=== PATIENT | female | born 1970 | race Caucasian/White ===

== ENCOUNTER 2016-06-05 08:00 | Inpatient (IN) | payer OTHER ==
--- NOTE | 2016-06-11 14:31 | HP ---
DATE OF ADMISSION: CHIEF COMPLAINT: Right knee pain. HISTORY OF PRESENT ILLNESS: The patient is a 45-year-old female who presents with progressive right knee pain secondary to osteoarthrosis despite extensive conservative treatment. She notes her pain is limiting her normal function and activities. She has had multiple previous injections in addition to previous arthroscopies. PAST MEDICAL HISTORY: Significant for arthritis and depression. PAST SURGICAL HISTORY: Significant for cholecystectomy, foot surgery, hysterectomy, bilateral knee arthroscopies. CURRENT MEDICATIONS: 1. Humira. 2. Ibuprofen. 3. Lexapro. 4. Neurontin. 5. Suboxone. She notes allergies to ERYTHROMYCIN and GATIFLOXACIN. FAMILY HISTORY: Significant for cancer. SOCIAL HISTORY: Negative for current tobacco or alcohol use. A 16-point review of systems otherwise reviewed and is noncontributory. On examination, the patient is approximately 5 foot 6, 190 pounds of endomorphic habitus. HEENT exam is nonfocal. Neck is supple. She has painless passive motion of the right hip. Straight leg raise is negative. Active motion of the right knee -6 to 115 degrees of flexion. She has a moderate effusion. She is tender about the medial joint line and lateral patella facet. Collaterals are stable, Willam is negative, Harish's is equivocal. She has genu varum alignment. Her distal neurovascular exam appears be intact in the right lower extremity. Weight-bearing notch, lateral, and merchant views of the right knee obtained in the office show severe medial and patellofemoral compartment narrowing. IMPRESSION: 1. Right knee severe medial and patellofemoral compartment osteoarthrosis. 2. Increased body mass index. RECOMMENDATIONS: I talked to the patient regarding her treatment options. At this point, she opts to proceed with surgery. We will plan to proceed with right total knee arthroplasty. Risks and benefits were discussed at length in layman's terms. We will institute DVT prophylaxis postoperatively. The patient underwent preoperative medical evaluation by Dr. Berry.
[2016-06-12] MEDS ORDERED: ACETAMINOPHEN TAB 500 MG TAB PO ONE (05:00)
[2016-06-12] MEDS ORDERED: MELOXICAM 7.5 MG TAB PO ONE (05:00)
[2016-06-12] MEDS ORDERED: TRANEXAMIC ACID 1,000 MG in SODIUM CHLORIDE 0.9% 100 ML IVPB ONE ×4 (05:00)
[2016-06-12] MEDS ORDERED: MIDAZOLAM 2 MG/2 ML VIAL IV PRN (05:56)
[2016-06-12] MEDS ORDERED: ONDANSETRON 4 MG/2 ML VIAL IVP ONE (05:56)
[2016-06-12] MEDS ORDERED: HYDROmorphone 1 MG/ML 1 ML SYRINGE IVP PRN ×3 (05:56→14:09)
[2016-06-12] MEDS ORDERED: DEXAMETHASONE SOD PHOSPHATE 10 MG/ML 1 ML VIAL IV ONE (05:56)
[2016-06-12] MEDS: LACTATED RINGERS 1,000 ML IV SCH (09:51)
[2016-06-12] MEDS ORDERED: LIDOCAINE 1% 20 ML VIAL (10MG/ML) FOR IV START INTRADERMA ONE (09:51)
[2016-06-12] MEDS ORDERED: MIDAZOLAM 2 MG/2 ML VIAL IV ONE (10:10)
[2016-06-12] MEDS ORDERED: fentaNYL (PF) 50 MCG/ML 2 ML AMP IV ONE (10:28)
[2016-06-12] MEDS ORDERED: ROPIVACAINE 1,100 MG, SODIUM CHLORIDE 0.9% 330 ML MISCELLANE PRN ×2 (10:29)
--- NOTE | 2016-06-12 10:32 | P.ONQ ---
Anesthesiology Proc Note - PNB - Peripheral Nerve Block Performed Right Adductor Canal Infusion Time Out Performed: Yes Indication: Acute Post-Operative Pain, Analgesia Specifically requested for management of pain by : Harris Lin Sedation Type: Sedate with meaningful contact maintained Preparation: Sterile Prep Position: Supine Catheter Depth at Skin (cm): 8 Catheter: Indwelling Needle Types: On-Q Needle Size: 100mm (4") Needle Gauge: 20 Technique: Ultrasound Injectate: 0.5% Ropivacaine (see comment for volume) (20 cc) Blood Aspirated: No Pain Paresthesia on Injection Noted: No Resistance on Injection: Normal Events: Uneventful and Well Tolerated
[2016-06-12] MEDS ORDERED: ePHEDrine 50 MG/ML 1 ML AMP ONE (12:24)
[2016-06-12] MEDS ORDERED: MIDAZOLAM 2 MG/2 ML VIAL ONE (12:24)
[2016-06-12] MEDS ORDERED: TRANEXAMIC ACID 1,000 MG/10 ML VIAL ONE (12:24)
[2016-06-12] MEDS ORDERED: fentaNYL (PF) 50 MCG/ML 2 ML AMP ONE (12:24)
[2016-06-12] MEDS ORDERED: SODIUM CHLORIDE 0.9% IRRIG 3,000 ML BAG IRRIGATION ONE (12:24)
[2016-06-12] MEDS ORDERED: LACTATED RINGERS 1,000 ML BAG IV ONE (12:24)
[2016-06-12] MEDS ORDERED: PROPOFOL 10 MG/ML 20 ML VIAL IV ONE (12:24)
[2016-06-12] MEDS ORDERED: SODIUM CHLORIDE 0.9% 100 ML BAG ONE ×2 (12:24)
[2016-06-12] MEDS ORDERED: ceFAZolin 1,000 MG VIAL ONE ×2 (12:24)
[2016-06-12] MEDS: ceFAZolin 2 GM in SODIUM CHLORIDE 0.9% 100 ML IVPB ONE ×2 (12:28→18:25)
[2016-06-12] MEDS ORDERED: ROPIVACAINE 246.25 MG, EPINEPHrine 0.5 MG, KETOROLAC 30 MG, cloNIDine HCL/PF 80 MCG, WA... MISCELLANE ONE ×5 (12:39)
[2016-06-12] MEDS: ceFAZolin 3,000 MG in SODIUM CHLORIDE 0.9% IRRIGATIO 3,000 ML IRRIGATION ONE ×2 (13:02→18:27)
[2016-06-12] MEDS: LACTATED RINGERS 1,000 ML IV ONE ×2 (13:14→18:27)
[2016-06-12] MEDS ORDERED: MAGNESIUM HYDROXIDE 2,400 MG/10 ML CUP PO PRN (14:09)
[2016-06-12] MEDS ORDERED: hydrOXYzine PAMOATE 25 MG CAP PO PRN (14:09)
[2016-06-12] MEDS ORDERED: NALOXONE 0.4 MG/ML 1 ML VIAL IV PRN (14:09)
[2016-06-12] MEDS ORDERED: ONDANSETRON 4 MG/2 ML VIAL IVP PRN (14:09)
--- NOTE | 2016-06-12 14:43 | P.OP ---
Date of Procedure: 06/12/16 Preoperative Diagnosis: Right knee severe tricompartmental osteoarthrosis Postoperative Diagnosis: Same Procedure(s) Performed: Right total knee arthroplasty/cemented/cruciate retaining Implants: [employer] size 6 narrow cemented femoral component, size 4 cemented tibial component, 29 mm cemented patellar component, 11 mm articular surface. This is a cruciate retaining implant. Anesthesia: spinal Surgeon: Harris Lin Conference Specialist #1: Aly Ladd Estimated Blood Loss (ml): 60 Pathology: other (Bone fragments) Condition: stable Disposition: PACU Indications for Procedure: The patient is a 45-year-old female who presents with progressive right knee pain secondary to osteoarthrosis despite extensive conservative measures. A discussion of the risks and benefits of operative intervention versus continued conservative measures was made with the patient. She opted to proceed with surgery. Operative risks to include infection, neurovascular injury, development of blood clots, possible component loosening, possible component failure need for subsequent procedures was discussed. Informed consent was obtained. Operative Findings: As below Description of Procedure: The patient was brought to the operating room, and after induction of spinal anesthesia the right lower extremity was prepped and draped in normal fashion. The tourniquet was inflated to 270 mmHg. A longitudinal incision extending 3 finger breaths above this. Pole of patella extending to the medial aspect of the tibial tubercle was then made. Skin and subcutaneous tissues were divided sharply. Electrocautery was used for hemostasis. A medial parapatellar arthrotomy is performed. The medial soft tissues to include the superficial and deep portions of the medial collateral ligament were elevated subperiosteally. The medial hamstrings were also elevated. The patella was everted. A portion of the retropatellar fat pad was excised sharply. The knee was flexed. The anterior cruciate ligament was sacrificed. Blunt retractors were placed. A starting hole was made 1 cm anterior to the posterior cruciate ligament origin. An intramedullary femoral guide was then gently inserted planning a 5 valgus distal cut with 9.5 mm distal resection. The cutting block was pinned in place. The distal cut was then made. The posterior referencing sizing guide was utilized. A felt size 6 was most appropriate. 3 external rotation was built into the alignment system and verified off the trans -epicondylar axis and the posterior condyles. The cutting block was pinned in place. The anterior, posterior, and chamfer cuts were then made. The bone fragments were removed. The size 6 narrow femoral component was placed and was fully seated. There was good anterior to posterior and medial to lateral fit. The distal peg holes were drilled. The trial component was then removed. Attention was then paid towards preparing the proximal tibia. An extra medullary guide was utilized in line with the tibial shaft and second metatarsal distally. A 3 posterior slope cutting block was utilized. I planned on 2 mm resection from the medial compartment. The cutting block was pinned in place. The posterior cruciate ligament was protected with a retractor. The proximal tibial cut was made in the bone removed in one fragment. The tibia sized most appropriately at size 4. The trial femoral and tibial components were placed along with an 11 mm articular surface. I was able to obtain full flexion and extension with good stability with varus and valgus stress. After several flexion and extension cycles the tibial rotation was marked with electrocautery in line with the medial one third of the tibial tubercle. Attention was then paid towards preparing the patella. A patella reamer was utilized taking this down to 14 mm of bone stock. A good flush cut was made. The patella sized most appropriately 29 mm. The peg holes were drilled. The trial component was placed. The knee was taken through range of motion. I had good patellofemoral tracking with no hands technique. The trial components were then removed. Remnants of the medial lateral menisci were previously excised the capsule junction with electrocautery. The tibia was prepared in the appropriate rotation with appropriate drill and keel punch. The flexion and extension gaps were checked and felt to be symmetric. The posterior soft tissues were injected with ropivacaine. The bony surfaces were prepared with pulsatile lavage and dried. The tibial component was then cemented in placed and was fully seated. Excess cement was removed. The femoral component cemented in placed and was fully seated. Excess cement was removed. A trial 11 mm articular surface was placed and the knee was put in full extension. The patella component was cemented in placed and was fully seated. Excess cement was removed. After the cement had sufficiently hardened , knee was again taken through range of motion. Again I was able to obtain full flexion and extension with good stability with varus and valgus stress. The trial articular surface was removed and the final one inserted. This was fully seated. Care was taken to avoid any soft tissue interposition. Pulsatile lavage was skin utilized. The medial parapatellar arthrotomy was closed with #2 Ethibond suture. A deep drain was placed exiting laterally. The tourniquet was deflated prior to final arthrotomy closure with approximately 1 hour total tourniquet time. Final hemostasis was obtained with electrocautery. The subcutaneous tissues reapproximated interrupted 2-0 Vicryl sutures. The skin was reapproximated with varus a particular strata fix suture. Skin tape and adhesive was applied. A sterile dressing was applied. The patient was then awoken from sedation and transferred to the recovery room in good condition. Blood loss was estimated at 60 mL. No complications were incurred. Sponge and needle counts were correct at the end the case.
--- NOTE | 2016-06-12 14:54 | XR ---
EXAMINATION TYPE: XR knee limited RT DATE OF EXAM: 06/12/2016 2:47 PM CLINICAL HISTORY: Right knee pain and arthritis status post total knee replacement. TECHNIQUE: Portable AP and crosstable lateral views of the right knee are obtained immediately posto peratively. COMPARISON: Right knee MRI April 15, 2015. FINDINGS: Metallic hardware from total right knee arthroplasty is seen and appears satisfactory in a lignment and position. There is evidence of recent surgery with diffuse subcutaneous gas , soft tiss ue swelling, and percutaneous surgical drain noted. IMPRESSION: METALLIC HARDWARE FROM TOTAL RIGHT KNEE ARTHROPLASTY IS SATISFACTORY IN ALIGNMENT.
[2016-06-12] MEDS ORDERED: ROPIVACAINE 5 MG/ML 30 ML VIAL MISCELLANE ONE (14:59)
[2016-06-12] MEDS ORDERED: LACTATED RINGERS 1,000 ML IV ONE (16:08)
[2016-06-12] MEDS: ceFAZolin 2 GM in SODIUM CHLORIDE 0.9% 100 ML IVPB SCH ×2 (18:28→22:58)
[2016-06-12] MEDS ORDERED: SENNOSIDES-DOCUSATE SODIUM 1 EACH TAB PO SCH (21:00)
[2016-06-12] MEDS: traMADol 50 MG TAB PO SCH ×2 (21:07→21:13)
[2016-06-12 21:55] VITALS: BMI 32.9
[2016-06-13 01:18] VITALS: RESP 16
[2016-06-13] MEDS: LACTATED RINGERS 1,000 ML IV SCH (03:41)
[2016-06-13] MEDS: oxyCODONE-APAP 10-325MG 1 EACH TAB PO PRN ×2 (05:37→10:55)
[2016-06-13 07:32] LABS: Basophils % (A) 0 %; CH 28.5; CHCM 33.1; Eosinophils % (A) 0 %; HCT 34.1 % (34.0-46.0); HDW 2.61; HGB 11.3 gm/dL (11.4-16.0); Luc % (Auto) 1; Lymphocytes # (A) 1.6 k/uL (1.0-4.8); Lymphocytes % (A) 11 %; MCH 28.6 pg (25.0-35.0); MCHC 33.1 g/dL (31.0-37.0); MCV 86.7 fL (80.0-100.0); Mean Platelet Volume 7.2; Monocytes # (A) 0.7 k/uL (0-1.0); Monocytes % (A) 5 %; Neutrophils # (A) 11.8 k/uL (1.3-7.7); Neutrophils % (A) 84 %; RBC 3.93 m/uL (3.80-5.40); RDW 12.2 % (11.5-15.5); WBC 14.2 k/uL (3.8-10.6); WBC (Perox) 14.81
[2016-06-13] MEDS: traMADol 50 MG TAB PO SCH ×2 (07:36→13:49)
[2016-06-13] MEDS: ceFAZolin 2 GM in SODIUM CHLORIDE 0.9% 100 ML IVPB SCH (07:36)
[2016-06-13] MEDS ORDERED: ceFAZolin 2 GM in SODIUM CHLORIDE 0.9% 100 ML IVPB ONE (08:00)
[2016-06-13] MEDS ORDERED: MELOXICAM 7.5 MG TAB PO SCH (09:00)
[2016-06-13] MEDS ORDERED: FAMOTIDINE 20 MG TAB PO SCH (09:00)
[2016-06-13] MEDS ORDERED: RIVAROXABAN 10 MG TAB PO SCH (09:00)
--- NOTE | 2016-06-13 10:24 | P.PN ---
Progress Note - Text Postoperative day 1 status post right total knee arthroplasty, and right adductor canal test and placed for postoperative analgesia, patient currently on ropivacaine 0.2% at 8 mL per hour, vital signs stable, patient reported that her pain score is 2-3/10, he is satisfied with the the pain control, Assessment and plan= adequate pain control will continue the same management
--- NOTE | 2016-06-13 11:29 | P.PN ---
Subjective Principal diagnosis: Status post right total knee arthroplasty Patient is seen today resting in her hospital bed, she appears to be no acute distress. Her pain is controlled at this point. She's ambulated well with therapy. She denies any shortness of breath, chest pain, fever chills. Objective - Vital Signs Vital signs: Vital Signs Temp 97.6 F 06/13/16 07:00 Pulse 94 06/13/16 07:00 Resp 16 06/13/16 07:00 BP 117/67 06/13/16 07:00 Pulse Ox 96 06/13/16 07:00 Intake & Output 06/12/16 06/13/16 06/13/16 18:59 06:59 18:59 Intake Total 5100 1500 Output Total 222 015 4026 Balance 4150 770 -1150 Weight 92.533 kg Intake: IV 5100 Intake, IV Titration 400 Amount Lactated Ringers 1,000 ml 400 As IV .[facility] Rx#: [id number] Oral 1100 Output: Drainage 180 Right Knee 180 Urine 892 904 7335 Uretheral (Santos) 550 900 Estimated Blood Loss 60 Other: Voiding Method Indwelling Catheter Indwelling Catheter # Voids 1 - Exam Right lower extremity: Her incision is clean, dry, and intact. Minimal ecchymosis present on the medial and lateral aspects of the incision. Calf is soft, no tenderness with palpation. Plantar flexion, dorsiflexion, EHL, FHL are intact. Sensory exam to light touch throughout the right lower extremity is intact. Cap refills less than 3 seconds - Labs CBC & Chem 7: 06/13/16 06:35 Labs: Abnormal Lab Results - Last 24 Hours (Table) 06/13/16 Range/Units 06:35 WBC 14.2 H (3.8-10.6) k/uL Hgb 11.3 L (11.4-16.0) gm/dL Neutrophils # 11.8 H (1.3-7.7) k/uL Assessment and Plan Plan: Assessment: 1. Postop day #1 status post right total knee arthroplasty Plan: 1. Pain control, she'll resume her oral medications after discharge 2. GI and DVT prophylaxis, discharged home on Xarelto 10 mg daily 3. Home therapy and nursing discharge 4. Wound care was discussed with patient today 5. Medical recommendations 6. Discharge planning: Patient will be discharged home today Time with Patient: Less than 30
--- NOTE | 2016-06-13 11:30 | P.DS ---
Providers Date of admission: 06/12/16 08:41 Expected date of discharge: 06/13/16 Attending physician: Harris Lin Consults: 06/12/16 14:09 Consult Physician Routine Consulting Provider: Bryan Berry Reason/Comments: medical management Do you want consulting provider notified?: Yes Primary care physician: Bryan Berry Hospital Course: Date of admission: 06/12/2016 Date of discharge: 06/13/2016 Admission diagnosis: Status post right total knee arthroplasty Discharge diagnosis: Same Attending physician: Dr. Lin Surgical procedures: Right total knee arthroplasty Brief history: Patient is a 45-year-old female with a history of progressive primary right knee osteoarthritis. At this point patient has failed conservative treatment measures and has opted to proceed with a elective right total knee arthroplasty. Hospital course: Details of patient's surgery can be found in operative report. Patient tolerated the procedure well and was subsequently transported to orthopedic floor. Patient's orthopeidc and medical care was provided daily. Patient had daily laboratory tests performed for evaluation of overall blood counts. Patient had daily physical therapy to include strengthening range of motion as well as education with walker ambulation. Patient had daily CPM usage as part of their physical therapy program. Patient was treated with Xarelto for their postoperative DVT prophylaxis during their inpatient stay. Patient was noted to have a relatively uneventful postoperative course. Patient reported satisfactory pain control with oral pain medications by postoperative day 0. Patient showed satisfactory progress with physical therapy. Patient moved steadily through the program and had no difficulty meeting the goals by postoperative day 1. Given patient's otherwise satisfactory course and having met physical therapy goals, plan is to discharge patient home on postoperative day 1. Discharge condition/disposition: Patient will be discharged home in stable condition. Discharge medications: Instructions are given on resumption of patient's normal daily medications per primary care recommendation, in addition patient will be prescribed Xarelto 10 mg, Colace 100 mg. Discharge instructions: 1. Wound care and infection precautions, keep incision dry and covered while showering, no lotions, creams, moisturizers. No soaking, tubs, pools, hottubs. Do not scrub over the incision. 2. Weight-bear as tolerated with walker / cane until follow-up. 3. Ice and elevate when necessary. Do not exceed 20 minutes per hour with ice pack. 4. Utilize compression sleeve until seen at first follow up appointment. 5. Visiting nursing care. 6. Home physical therapy including home CPM. 7. Pain meds and anticoagulants per prescription. 8. Pain medication has potential to cause constipation. Increase oral fluid and fiber intake. Contact primary care provider if you have not had a bowel movement within 48 hours after discharge 9. No anti-inflammatory medication until discussed at first post operative visit, this including Motrin, Aleve, Mobic, Diclofenac. 10. Follow up in office at 2 weeks postop with Raul Ladd PA-C 11. Follow up with your primary care doctor 7-10 days after discharge. 12. Contact [facility] with any questions, . Procedures: Right total knee arthroplasty Patient Condition at Discharge: Good Plan - Discharge Summary New Discharge Prescriptions: Docusate [Colace] 100 mg PO DAILY #20 capsule Rivaroxaban [Xarelto] 10 mg PO DAILY #12 tab Discharge Medication List Acetaminophen Tab [Tylenol Tab] 500 mg PO Q6H PRN 09/06/15 [History] Buprenorphine HCl/Naloxone HCl [Suboxone 4 mg-1 mg Sl Film] 1 film SL DAILY 10/16 [History] Escitalopram [Lexapro] 20 mg PO HS 09/06/15 [History] Gabapentin [Neurontin] 600 mg PO TID 09/06/15 [History] Ascorbic Acid [Vitamin C] 500 mg PO DAILY 06/01/16 [History] [place]-3 Fatty Acids/Fish Oil [Fish Oil 1,000 mg Softgel] 1 cap PO DAILY [History] Rivaroxaban [Xarelto] 10 mg PO DAILY #12 tab 06/12/16 [Rx] oxyCODONE-APAP 10-325MG [Percocet 10-325 mg] 1 tab PO Q6HR PRN 06/12/16 [History ] Docusate [Colace] 100 mg PO DAILY #20 capsule 06/13/16 [Rx] Follow up Appointment(s)/Referral(s): Aly Ladd PAC [PHYSICIAN SUPERVISOR ANODIZING] - 2 Weeks Activity/Diet/Wound Care/Special Instructions: Home Care - [facility] - [phone] Walker - has at home [facility] - [phone] - call for delivery of CPM when you get home. Orthopedic Discharge Instructions: 1. Wound care and infection precautions, keep incision dry and covered while showering, no lotions, creams, moisturizers. No soaking, pools, hot tubs. Do not scrub over incision. 2. Weight-bear as tolerated with walker / cane until follow-up. 3. Ice and elevate when necessary. Do not exceed 20 minutes per hour with ice pack. 4. Utilize compression sleeve until seen at first follow up appointment. 5. Visiting nursing care. 6. Home physical therapy including home CPM. 7. Pain meds and anticoagulants per prescription. 8. Pain medication has potential to cause constipation. Increase oral fluid and fiber intake. Contact primary care provider if you have not had a bowel movement within 48 hours after discharge. 9. No anti-inflammatory medication until discussed at first post operative visit, this including Motrin, Aleve, Mobic, Diclofenac. 10. Follow up in office at 2 weeks postop with Raul Ladd PA-C 11. Follow up with your primary care doctor 7-10 days after discharge. 12. Contact [facility] with any questions, . Discharge Disposition: HOME WITH HOME HEALTH SERVICES
[2016-06-13 14:41] VITALS: BP 122/79; PULSE 95; TEMP 98.2
--- NOTE | 2016-06-13 17:01 | CONS ---
DATE OF CONSULTATION: 06/13/2016 REASON FOR CONSULTATION: Medical management requested Dr. Lin. CONSULTATION: This is a pleasant 45-year-old patient of Dr. Berry who has undergone right total knee arthroplasty. Post procedure pain is controlled. No nausea, vomiting. No chest pain. Patient's chronic stable medical conditions include anxiety; also has osteoarthritis of the hands that is controlled. REVIEW OF SYSTEMS: CONSTITUTIONAL: None. HEENT: None. RESPIRATORY: None. CARDIOVASCULAR: None. GASTROINTESTINAL: None. GENITOURINARY: None. MUSCULOSKELETAL: Arthritic pain in the hands. DERMATOLOGICAL: None. HEMATOLOGICAL: None. LYMPHATIC: None. PSYCHIATRY: Anxiety history. NEUROLOGICAL: None. PAST MEDICAL HISTORY: Osteoarthritis, anxiety. PAST SURGICAL HISTORY: 1. Cholecystectomy. 2. Hysterectomy. 3. Left foot bunion. 4. Left and right knee scope. SOCIAL HISTORY: . Works as a nurse case coordinator. FAMILY HISTORY: Reviewed; non-contributory to presentation. HOME MEDICATIONS: 1. Percocet 10 one tablet q.6 p.r.n. 2. Fish oil 1 capsule p.o. daily. 3. Neurontin 600 mg p.o. t.i.d. 4. Lexapro 20 mg p.o. at bedtime. 5. Suboxone 1 sublingually daily. 6. Vitamin C 500 mg p.o. daily. 7. Tylenol 500 mg p.o. q.6 p.r.n. 8. Xarelto 10 mg p.o. daily. 9. Colace 100 mg p.o. daily. ALLERGIES: ERYTHROMYCIN and GATIFLOXACIN. On examination, temperature 97.6, pulse 94, respiration 16, blood pressure 117/67, pulse ox 96% on room air. GENERAL APPEARANCE: Well built. BMI of 32.9. Sitting up. Comfortable. EYES: Pupils equal. Conjunctivae normal. HEENT: External appearance of nose and ears normal. Oral cavity normal. NECK: JVD not raised. Mass not palpable. RESPIRATORY: Effort normal. Lungs are clear. CARDIOVASCULAR: First and second sounds normal. No edema. ABDOMEN: Soft, nontender. Liver and spleen not palpable. LYMPHATIC: No lymph node palpable in neck or axillae. PSYCHIATRY: Alert and oriented x3. Mood and affect normal. NEUROLOGICAL: Pupils equal. Cranial nerves grossly intact. Power and sensation grossly intact. MUSCULOSKELETAL: Evidence of osteoarthritis, especially in the hands. INVESTIGATIONS: White count 14.2, hemoglobin 11.3. ASSESSMENT: 1. Right total knee arthroplasty. 2. Primary osteoarthritis, especially of the hands. 3. Anxiety not otherwise specified. 4. Obesity; body mass index of 32.9. 5. Leukocytosis, likely reactive from surgery. PLAN: Patient's Neurontin, Lexapro will be continued. Patient is getting Xarelto for DVT prophylaxis. Pain is controlled. Patient should see a dietitian for weight loss measures; also follow with her family doctor. Care was discussed with the patient. Thank you, Dr. Lin.
== END 2016-06-13 15:08 | disposition home health service (06) | DRG 470 ==
LOC: 2ORMAIN 06-12 08:41 → 3SUR 06-12 17:04
PROVIDERS: ADMIT Orthopaedic Surgery; ATTEND Orthopaedic Surgery
PROC: 0SRC0J9 Replacement of Right Knee Joint with Synthetic Substitute, Cemented, Open Approach (ICD-10-PCS; principal; 2016-06-12 10:30)
DX: M17.11 Unilateral primary osteoarthritis, right knee (principal); D72.829 Elevated white blood cell count, unspecified; M19.041 Primary osteoarthritis, right hand; F41.9 Anxiety disorder, unspecified; M19.042 Primary osteoarthritis, left hand; Z79.01 Long term (current) use of anticoagulants; M21.161 Varus deformity, not elsewhere classified, right knee; Z79.899 Other long term (current) drug therapy
CPT/HCPCS: 85025; 88300